=== PATIENT | male | born 1955 | race Caucasian/White ===

== ENCOUNTER 2018-01-05 12:15 | Day surgery (SDC) | payer OTHER ==
[2018-01-05] MEDS: POLYMYXIN/BACITRACIN 1L IRRIG IRR
[~2018-01-05 12:15] MED LIST: CEFAZOLIN 1 GM INJ; CEFAZOLIN 1 GM/50 ML (PMX) 50 ML IVPB; DIPHENHYDRAMINE 50 MG INJ IV; EPHEDrine SULFATE 50 MG/5 ML SYG IV; FENTAnyl 50 MCG/ML VIAL; FENTAnyl 50 MCG/ML VIAL IV; HYDROmorphONE (0.2 MG/ML) 10ML SYG IV; LABETALOL HCL 20MG INJ IV; MEPERIDINE 25 MG INJ IV; METOCLOPRAMIDE 10 MG INJ IV; MIDAZOLAM 1 MG/ML 2 ML INJ; ONDANSETRON 4 MG INJ IV; OXYCODONE/ACETAMINOPHEN (5/325) TAB PO; PROPOFOL 20 ML; ROCURONIUM 50 MG INJ; ROPIVACAINE 0.2% 20 ML VIAL; SOD CHLORIDE 0.9% 1,000 ML IV; hydrALAzine 20 MG INJ IV
[2018-01-05] MEDS ORDERED: BUPIVACAINE 0.25% (MPF) 30 ML INJ (13:59)
[2018-01-05] MEDS ORDERED: DEXAMETHASONE 4 MG/ML 1 ML INJ (14:59)
[2018-01-05] MEDS ORDERED: ONDANSETRON 4 MG INJ (14:59)
[2018-01-05] MEDS ORDERED: SUGAMMADEX SODIUM 200 MG/2 ML VIAL IV (14:59)
[2018-01-05] MEDS ORDERED: METOCLOPRAMIDE 10 MG INJ (14:59)
[2018-01-05] MEDS ORDERED: KETOROLAC 30 MG INJ (14:59)
[2018-01-05] MEDS ORDERED: HYDROCODONE/APAP (5/325) TAB PO (15:30)
[2018-01-05] MEDS ORDERED: HYDROmorphONE (0.2 MG/ML) 10ML SYG IV (15:35)
== END 2018-01-05 17:20 | disposition home or self-care (01) ==
LOC: SDS 12:15
DX: K40.30 Unilateral inguinal hernia, with obstruction, without gangrene, not specified as recurrent (principal); I10 Essential (primary) hypertension
CPT/HCPCS: 49507; 88302